=== PATIENT | male | born 1965 | race African-American/Black ===

== ENCOUNTER 2017-03-29 11:16 | Inpatient (IN) | payer BC ==
[~2017-03-29] VITALS: Ht 180.3 cm; Wt 96.2 kg
[~2017-03-29 11:16] MED LIST: NOHOMEMEDICATIONS; ULTRAM 50MG TAB50 MG PO
[2017-03-29 11:17] VITALS: BP 130/87
[2017-03-29 11:43] LABS: ABSOLUTE NEUTROPHILS 3.8 thou/uL (1.4-8.2); BASOPHILS 0.8 % (0.0-2.0); EOSINOPHILS 1.5 % (0.0-3.0); HEMATOCRIT 44.1 % (42.0-52.0); HEMOGLOBIN 14.9 gm/dL (14.0-18.0); LYMPHOCYTES 17.4 % (24.0-44.0); MCH 29.1 pg (26.0-34.0); MCHC 33.9 g/dL (28.0-37.0); MCV 85.9 fL (80.0-100.0); MONOCYTES 7.7 % (1.0-8.0); PLATELET COUNT 162 thou/uL (150-400); POLYS 72.6 % (36.0-66.0); RBC 5.13 mil/uL (4.50-6.00); RDW 14.3 % (10.5-14.5); WBC 5.3 thou/uL (4.0-11.0)
[2017-03-29 11:45] LABS: MANUAL DIFF NO
[2017-03-29 11:51] LABS: URINE BILIRUBIN NEGATIVE (Negative); URINE BLOOD NEGATIVE (Negative); URINE COLOR YELLOW; URINE GLUCOSE-RANDOM* 3+ (Negative); URINE KETONES 1+ (Negative); URINE NITRITE NEGATIVE (Negative); URINE PROTEIN (DIPSTICK) NEGATIVE (Negative); URINE SPECIFIC GRAVITY <= 1.005 (1.003-1.035); URINE UROBILINOGEN 0.2 E.U./dl (0.2-1.0)
[2017-03-29 12:01] LABS: ALBUMIN 3.8 g/dL (3.4-5.0); CREATININE 1.4 mg/dL (0.7-1.3); POTASSIUM 3.9 mmol/L (3.5-5.1); TOTAL BILIRUBIN 1.4 mg/dL (<0.1-1.0); TOTAL PROTEIN 6.9 g/dL (6.4-8.2)
[2017-03-29 12:47] LABS: ABG SAMPLE TYPE VENOUS; BE(vivo) -0.9 mmol/L (-2 to +3); HCO3 24.5 mmol/L (22.0-26.0); LACTATE 1.62 mmol/L (0.5-2.0); O2(CT) 14.8 mL/dL (15.0-23.0); PCO2 VENOUS 43.3 mmHg (41.0-51.0); PO2 VENOUS 38.7 mmHg (35.0-45.0); STICK SITE LAB; sO2 VENOUS 71.5 % (65.0-85.0); tCO2 25.9 mmol/L (24.0-30.0)
[2017-03-29 13:19] VITALS: BP 135/91
[2017-03-29 13:53] VITALS: BP 134/93
[2017-03-29 14:05] LABS: CHOLESTEROL 168 mg/dL (<200); HDL CHOLESTEROL 42 mg/dL (>40); LDL CHOLESTEROL 98 mg/dL (<100); TRIGLYCERIDE 143 mg/dL (<150); VLDL 29 mg/dL (<40)
[2017-03-29] MEDS ORDERED: ADVIL200 M1 PO (14:09)
[2017-03-29 20:00] VITALS: BP 110/68
[2017-03-30 04:00] VITALS: BP 114/87
[2017-03-30 06:38] LABS: ALBUMIN 2.6 g/dL (3.4-5.0); CALCIUM 7.8 mg/dL (8.5-10.1); PHOSPHORUS 3.4 mg/dL (2.5-4.9); POTASSIUM 3.5 mmol/L (3.5-5.1)
[2017-03-30 07:54] VITALS: BP 127/85
[2017-03-30] MEDS ORDERED: GLUCOPHAGE500 MG PO (10:09)
[2017-03-30] MEDS ORDERED: BENAZEPRIL HCL10 MG PO (10:09)
[2017-03-30] MEDS ORDERED: GLYBURIDE 5 MG T5 M1 PO (10:09)
[2017-03-30 14:09] VITALS: BP 127/85
[2017-03-30 14:34] VITALS: BP 127/85
[2017-03-30 15:31] VITALS: BP 127/85
== END 2017-03-30 15:31 | disposition home or self-care (01) | DRG 637 ==
LOC: ER 11:16 → EROBS 12:56 → 3N 12:56 → EROBS 13:51 → 3N 13:53
PROVIDERS: Hospitalist; Physician Assistant
DX: E11.65 Type 2 diabetes mellitus with hyperglycemia (principal); E43 Unspecified severe protein-calorie malnutrition; N17.9 Acute kidney failure, unspecified; E86.0 Dehydration; I10 Essential (primary) hypertension; E66.9 Obesity, unspecified; H53.8 Other visual disturbances; G43.909 Migraine, unspecified, not intractable, without status migrainosus; Z68.29 Body mass index [BMI] 29.0-29.9, adult
CPT/HCPCS: 10094

== ENCOUNTER 2021-11-06 17:52 | Emergency (ER) | payer BC ==
[~2021-11-06] VITALS: Ht 182.9 cm; Wt 80.7 kg
--- NOTE | ~2021-11-06 | EMS ---
[address] [address] EMS Patient Care Report Name: CANDIS GARRISON Room #: DEP DEYANIRA Morin#: [id number] Admission: 11/06/21 Attend Phys: Discharge: 11/06/21 Date of : 67 Report #: [id number] THIS REPORT FOR: //name// Report Transmitted: 11/09/2021 10:13 EMS Care Summary [place], [place]/[facility] Incident [id number] @ 11/06/2021 17:17 Incident Location [address] [place], [place] [id number] Patient CANDIS GARRISON Male, 56 Years 1965 Patient Address [address] [place], [place] [id number] Patient History Diabetes,Novel Coronavirus (COVID-19), Patient Allergies No known allergies, Patient Medications Lantus, Novolog, Chief Complaint covid +, dizzy, SOA Disposition Transported No Lights/[place] Dispatch Reason Sick Person Transported To [facility] Narrative 56 y/o covid pt c/o SOA, dizzy and AMS Upon arrival the pt was ambulating out of the apt and down the steps with fire [address] [address] EMS Patient Care Report Name: CANDIS GARRISON Room #: DEP DEYANIRA Morin#: [id number] Admission: 11/06/21 Attend Phys: Discharge: 11/06/21 Date of : 67 Report #: [id number] personnel. The pt is reported to currently be Covid + who is today experiencing dizziness, SOA, and reports of AMS but pt is A&O x 4 with a GCS of 15 who is answering all my questions appropriately. The pt was assisted to the ambulance cot x 1. Placed in a position of comfort, secured to the cot, and loaded into the ambulance. VS were established. D-275. The pt was transported to [facility] for further evaluation and transported to [facility] with no incident or changes with the pt. Initial Vitals @17:29P: 95,BP: 110/74,CO: 6,SpO2: 94, @17:30P: 99,R: 14,BP: 136/85,Pain: 0/10,GCS: 15,Glucose: 275,SpO2: 92,Revised Trauma: 12, Assessments @17:32MENTAL:Event Oriented,Person Oriented,Place Oriented,Time Oriented,SKIN:HEENT:Head/Face: No Abnormalities,Neck/Airway: No Abnormalities,LUNG SOUNDS:General: No Abnormalities,ABDOMEN:General: No Abnormalities,PELVIS//GI:No Abnormalities,EXTREMITIES:Capillary Refill: Left Upper: < 2 Sec,Capillary Refill: Right Upper: < 2 Sec,Left Arm: No Abnormalities,Right Arm: No Abnormalities,Left Leg: No Abnormalities,Right Leg: No Abnormalities,PULSE:Radial: 2+ Normal,NEURO:No Abnormalities, Impression COVID-19 - Confirmed by testing Procedures @17:32 ALS Assessment Response: UnchangedSucceeded Timeline 17:14,Call Received 17:14,Dispatch Notified 17:17,Dispatched 17:18,En Route 17:27,On Scene 17:28,At Patient 17:29,BP: 110/74 M,PULSE: 95,RR: R,SPO2: 94 Ox,ETCO2: ,BG: ,PAIN: ,GCS: , 17:30,BP: 136/85 M,PULSE: 99,RR: 14 R,SPO2: 92 Ox,ETCO2: ,B,PAIN: 0,GCS: 15, 17:31,Depart Scene 17:32,ALS Assessment,Response: UnchangedSucceeded, 17:39,At Destination 18:00,Call Closed Disclaimer v1.1 Copyright 2021 [employer], [address] [address] EMS Patient Care Report Name: CANDIS GARRISON Room #: DEP Mikel#: [id number] Admission: 11/06/21 Attend Phys: Discharge: 11/06/21 Date of : 67 Report #: [id number] This EMS Care Summary contains data elements from the applicable legal record (which may be displayed differently). It is designed to provide pertinent information for the following purposes: continuity of care, clinical quality, and state data reporting. The complete legal record is available to ED staff and administrators of the receiving hospital in [employer] Patient Tracker. All data is provided "as is."
[~2021-11-06 17:52] MED LIST changes: +ADVIL200 M1 PO; +BENAZEPRIL HCL10 MG PO; +GLUCOPHAGE500 MG PO; +GLYBURIDE 5 MG T5 M1 PO
[2021-11-06 17:53] VITALS: BP 104/75
[2021-11-06 18:59] LABS: HEMOGLOBIN 14.3 gm/dL (14.0-18.0); MCH 28.3 pg (26.0-34.0); MCHC 33.2 g/dL (28.0-37.0); MCV 85.2 fL (80.0-100.0); RBC 5.05 mil/uL (4.50-6.00); RDW 14.1 % (10.5-14.5); WBC 6.4 thou/uL (4.0-11.0)
[2021-11-06 19:04] LABS: CALCIUM 8.5 mg/dL (8.5-10.1); CREATININE 1.1 mg/dL (0.7-1.3); POTASSIUM 4.4 mmol/L (3.5-5.1)
[2021-11-06 19:14] LABS: ALBUMIN 2.5 g/dL (3.4-5.0); TOTAL BILIRUBIN 0.7 mg/dL (0.2-1.0); TOTAL PROTEIN 6.3 g/dL (6.4-8.2)
[2021-11-06] MEDS ORDERED: VISTARIL 25 MG25 M1 PO (19:28)
[2021-11-06] MEDS ORDERED: ZPAK PO (19:28)
[2021-11-06] MEDS ORDERED: AMBIEN 5 MG TABL5 M1 PO (19:28)
--- NOTE | 2021-11-07 07:40 | EKG ---
[address] [place] [address] ELECTROCARDIOGRAM REPORT Name: CANDIS GARRISON [id number] Admission: 11/06/21 Attend Phys: Discharge: 11/06/21 Date of : 67 Report #: [id number] [facility] ED Test Date: 2021-11-06 Test Time: 18:48:06 Pat Name: CANDIS GROVERN Department: Room: Gender: M [employer] Maintainer: GIULIANO WHITAKER : 1965 Requested By: Daniel Marquez Order Number: [id number] MD: Mesfin Mayo Measurements Intervals [place] Rate: 85 P: 18 MT: 169 QRS: -11 QRSD: 95 T: 13 QT: 357 QTc: 425 Interpretive Statements Sinus rhythm Borderline ST elevation, lateral leads No previous ECG available for comparison Electronically Signed On 11-07-2021 7:39:54 [employer] by Mesfin Mayo [email or web address] <ELECTRONICALLY SIGNED> By: Mesfin Mayo MD, [facility] 11/07/21 [id number] Mesfin Mayo MD, FACC /EPI
== END 2021-11-06 19:42 | disposition home or self-care (01) ==
LOC: ER 17:52
PROVIDERS: Physician Assistant
DX: U07.1 COVID-19 (principal); F41.9 Anxiety disorder, unspecified; J12.82 Pneumonia due to coronavirus disease 2019; G47.00 Insomnia, unspecified; G43.909 Migraine, unspecified, not intractable, without status migrainosus; Z79.899 Other long term (current) drug therapy